=== PATIENT | female | born 1985 | race Caucasian/White ===

== ENCOUNTER 2017-06-16 09:49 | Emergency (ER) | payer OTHER ==
[~2017-06-16] VITALS: Ht 160 cm; Wt 76.4 kg
[~2017-06-16 09:49] MED LIST: ATARAX,VISTARIL25 MG PO; DOXEPIN HCL25 MG PO; LOSARTAN POTASS50 MG PO; METHADONE10 MG/1 M1 PO; Methadone Oral Solut PO; Motrin PO; NOHOMEMEDS; Percocet 5/325,Endoc PO; SUBOXONE 8 M1 TABLET PO; VALIUM5 MG PO
[2017-06-16 09:54] VITALS: BP 116/87
[2017-06-16] MEDS ORDERED: PERCOCET 5/31 TABLET PO (10:52)
== END 2017-06-16 11:55 | disposition home or self-care (01) ==
LOC: EME 09:49
DX: S92.342A Displaced fracture of fourth metatarsal bone, left foot, initial encounter for closed fracture (principal); X58.XXXA Exposure to other specified factors, initial encounter; Y93.01 Activity, walking, marching and hiking; F17.200 Nicotine dependence, unspecified, uncomplicated
CPT/HCPCS: 73630; 99281; 99283